=== PATIENT | male | born 1955 | race African-American/Black ===

== ENCOUNTER 2022-03-26 12:17 | Emergency (ER) | payer MEDICARE, OTHER ==
[~2022-03-26] VITALS: Ht 162.6 cm; Wt 90.9 kg
[~2022-03-26 12:17] MED LIST: ASPI-1450 PO; FURO20 PO; GABA-1216 PO; HYDR-4061 PO; LISI-893 PO
[2022-03-26 12:35] VITALS: BP 157/85
== END 2022-03-26 15:44 | disposition left against medical advice (07) ==
LOC: EMS 13:31
DX: F29 Unspecified psychosis not due to a substance or known physiological condition (principal); Z53.21 Procedure and treatment not carried out due to patient leaving prior to being seen by health care provider